=== PATIENT | female | born 1995 | race American Indian/Alaskan Native ===

== ENCOUNTER 2017-01-22 12:43 | Emergency (ER) | payer SELFPAY ==
[2017-01-22 13:44] LABS: Hemoglobin 12.1 gm/dl (10.1-14.3); Mean Corpuscular HGB Conc 34 % (30-34); Mean Corpuscular Hemoglobin 31 pg (28-32); Mean Corpuscular Volume 91 fl (79-97); Platelet Count 245 K/mm3 (140-440); Red Blood Count 3.96 M/mm3 (3.65-5.03); Red Cell Distribution Width 14.1 % (13.2-15.2); White Blood Count 7.4 K/mm3 (4.5-11.0)
[2017-01-22 13:52] LABS: Anion Gap 17 mmol/L; BUN/Creatinine Ratio 12.85; Blood Urea Nitrogen 9 mg/dL (7-17); Calcium 8.7 mg/dL (8.4-10.2); Carbon Dioxide 24 mmol/L (22-30); Glucose 89 mg/dL (65-100); Potassium 4.3 mmol/L (3.6-5.0); Sodium 139 mmol/L (137-145)
[2017-01-22] MEDS ORDERED: ROCEPHIN IM ONE (13:57)
[2017-01-22] MEDS ORDERED: XYLOCAINE 1% MPF 5 mL INFILTRATI ONE (13:57)
[2017-01-22] MEDS ORDERED: ZITHROMAX PO ONE (13:57)
[2017-01-22] MEDS ORDERED: NACL ONE (13:59)
[2017-01-22 14:02] VITALS: BP 98/68
[2017-01-22 14:56] LABS: Bilirubin,Urine NEG (Negative); Blood,Urine SM (Negative); Ketones,Urine NEG (Negative); Leukocyte Esterase,Urine TR (Negative); Mucus,Urine 2+ /HPF; Nitrite,Urine NEG (Negative); Protein,Urine <15 mg/dL mg/dL (Negative); Urobilinogen,Urine < 2.0 mg/dL (<2.0)
--- NOTE | 2017-01-22 15:34 | Ultrasound Report ---
FINAL REPORT EXAM: US PELVIC COMPLETE HISTORY: pelvic pain . LMP 12/27/2016 TECHNIQUE: Ultrasound of the pelvis using transabdominal and transvaginal imaging PRIORS: None. FINDINGS: Uterus: Uterus is elongated in size and normal and homogeneous in echogenicity without focal fibroid formation. The uterus measures 8.7 x 4.2 x 6.0 cm in size. Endometrial stripe: Normal and uniform in thickness measuring 9.9 mm. Ovaries: Both ovaries appear normal in size and echogenicity with normal blood flow bilaterally. The right ovary measures 3.8 x 2.5 x 3.0 cm and the left ovary measures 3.3 x 1.7 x 2.1 cm in size. There is a complex focus in the right ovary measuring 2.2 x 1.4 x 1.6 cm. This is likely hemorrhagic . Other: There is no evidence for solid adnexal mass or free fluid in the cul-de-sac seen. IMPRESSION: Complex focus in the right ovary, probably a hemorrhagic cyst. Otherwise, negative exam.
--- NOTE | 2017-01-22 15:38 | Ultrasound Report ---
FINAL REPORT EXAM: US TRANSVAGINAL HISTORY: pelvic pain LMP 12/27/2016 TECHNIQUE: Ultrasound of the pelvis using transabdominal and transvaginal imaging PRIORS: None. FINDINGS: Uterus: Uterus is elongated in size and normal and homogeneous in echogenicity without focal fibroid formation. The uterus measures 8.7 x 4.2 x 6.0 cm in size. Endometrial stripe: Normal and uniform in thickness measuring 9.9 mm. Ovaries: Both ovaries appear normal in size and echogenicity with normal blood flow bilaterally. The right ovary measures 3.8 x 2.5 x 3.0 cm and the left ovary measures 3.3 x 1.7 x 2.1 cm in size. There is a complex focus in the right ovary measuring 2.2 x 1.4 x 1.6 cm. This is likely hemorrhagic . Other: There is no evidence for solid adnexal mass or free fluid in the cul-de-sac seen. IMPRESSION: Complex focus in the right ovary, probably a hemorrhagic cyst. Otherwise, negative exam.
[2017-01-22 17:43] LABS: Blastocytes % (Manual) 0 %
[2017-01-22 17:44] LABS: Diff Status Complete; Platelet Estimate Consistent w Auto; RBC Morphology Normal
--- NOTE | 2017-01-22 22:47 | Emergency Department Report ---
Entered by BUFFY CLEMENTE, acting as scribe for DILEEP BAH NP. ED Female HPI - General Chief complaint: Urogenital-Female Stated complaint: ABD PAIN,ABNORMAL DISCHARGE Time Seen by Provider: 01/22/17 13:13 Source: patient Mode of arrival: Ambulatory Limitations: No Limitations - History of Present Illness Initial comments: 21 y/o female that is non-toxic, non ill appearing, in no acute distress presents with no significant PMHx presents to the ED c/o intermittent pelvic pain that began 1 month ago. Rates pelvic pain currently a 6/10 in severity. Associated symptoms include polyuria, urgency, frequency, vaginal discharge with a foul odor, and low back pain, but she denies dysuria, hematuria, abdominal pain, nausea, and vomiting. Patient states that she suspects getting an STD from her current sexual partner. LMP 12/27/2016. NKDA. ARELLANO Complaint: vaginal discharge, pelvic pain Onset/Timin -: month(s) Radiation: non-radiating Severity: moderate Severity scale (0 -10): 6 Quality: aching Consistency: constant Improves with: none Worsens with: none Associated Symptoms: denies other symptoms, vaginal discharge (with a foul odor) , other (polyuria, urgency, frequency). denies: vaginal bleeding, abdominal pain, nausea/vomiting, fever/chills, headaches, loss of appetite, dysuria, hematuria, rash, shortness of breath, syncope, weakness - Related Data Sexually active: Yes (1 sexual partner) Previous Rx's Medication Instructions Recorded Last Taken Type metroNIDAZOLE [Flagyl] 500 mg PO Q12HR #14 tab 08/13/16 Unknown Rx metroNIDAZOLE [Flagyl] 500 mg PO Q12HR 7 Days 01/22/17 Unknown Rx Allergies Allergy/AdvReac Type Severity Reaction Status Date / Time No Known Allergies Allergy Verified 01/22/17 14:06 ED Review of Systems Comment: All other systems reviewed and negative Constitutional: no symptoms reported. denies: chills, fever Respiratory: no symptoms reported. denies: cough, shortness of breath Cardiovascular: as per HPI. denies: chest pain Endocrine: no symptoms reported Gastrointestinal: as per HPI, other (pelvic pain). denies: abdominal pain, nausea, vomiting Genitourinary: urgency, frequency, discharge (with a foul odor). denies: dysuria, hematuria Musculoskeletal: as per HPI, back pain (low back pain) Skin: denies: rash ED Past Medical Hx - Past Medical History Previous Medical History?: Yes Additional medical history: UTI, Bacterial vaginosis - Surgical History Past Surgical History?: No - Social History Smoking Status: Current Every Day Smoker Substance Use Type: Alcohol, Marijuana - Medications Home Medications: Home Medications Medication Instructions Recorded Confirmed Last Taken Type metroNIDAZOLE [Flagyl] 500 mg PO Q12HR #14 tab 08/13/16 Unknown Rx metroNIDAZOLE [Flagyl] 500 mg PO Q12HR 7 Days 01/22/17 Unknown Rx ED Physical Exam - General Limitations: No Limitations General appearance: alert, in no apparent distress - Head Head exam: Present: atraumatic, normocephalic - Eye Eye exam: Present: normal appearance, EOMI Pupils: Present: normal accommodation - ENT ENT exam: Present: normal exam, mucous membranes moist, TM's normal bilaterally , normal external ear exam - Neck Neck exam: Present: normal inspection, full ROM - Respiratory Respiratory exam: Present: normal lung sounds bilaterally. Absent: respiratory distress, wheezes, rales, rhonchi - Cardiovascular Cardiovascular Exam: Present: regular rate, normal rhythm. Absent: bradycardia , tachycardia, irregular rhythm, systolic murmur, diastolic murmur, rubs, gallop - GI/Abdominal GI/Abdominal exam: Present: soft, normal bowel sounds. Absent: distended, tenderness, guarding, rebound, rigid - External exam: Present: normal external exam (female av specialist present during the exam), other (thick white milky discharge). Absent: erythema, swelling ( Bartholin cyst), lesions, lacerations, ecchymosis, bleeding Speculum exam: Present: normal speculum exam (female av specialist present during the exam), erythema (vaginal wall area is erythematous), vaginal discharge ( white cottage cheese discharge with a foul odor), cervical discharge (white cottage cheese in appearance). Absent: foreign body, tissue, laceration Bi-manual exam: Present: normal bi-manual exam (female av specialist present during the exam). Absent: cervical motion tendernes, adnexal tenderness, adnexal mass , uterine enlargement, uterine tenderness - Expanded Exam Expanded Female exam: Absent: vaginal laceration, tissue present in vagina, herpetic lesions, vulvar erythema, vulvar tenderness, foreign body External exam: Absent: normal (thick white milky vaginal discharge) Amniotic fluid: Present: none Speculum exam: Present: cervical OS closed, vaginal discharge (white cottage cheese like discharge). Absent: vaginal bleeding - Extremities Exam Extremities exam: Present: normal inspection, full ROM - Back Exam Back exam: Present: normal inspection, full ROM. Absent: CVA tenderness (R), CVA tenderness (L) - Neurological Exam Neurological exam: Present: alert, oriented X3, CN II-XII intact, normal gait - Psychiatric Psychiatric exam: Present: normal affect, normal mood - Skin Skin exam: Present: warm, dry, intact. Absent: rash ED Course Vital Signs 01/22/17 01/22/17 12:53 14:00 Temperature 98.5 F Pulse Rate 113 H 86 Respiratory 20 18 Rate Blood Pressure 139/85 Blood Pressure 98/68 [Left] O2 Sat by Pulse 100 100 Oximetry ED Medical Decision Making - Lab Data Result diagrams: 01/22/17 13:25 01/22/17 13:25 - Medical Decision Making Ed course: This is a 21-year-old female presents with cervicitis and bacterial vaginosis 1- upon assessment of the patient, patient received ultrasound of the pelvic/ transvaginal due to history of pelvic pain for the past month. Patient denies any pelvic pain at this current time. Ultrasound results: Dr. Forman dictated. Impression; complex focus in the right ovary roughly a hemorrhagic cyst otherwise negative exam. Patient was notified of the ultrasound results and was instructed to follow-up with her velvet weaver. 2- patient received Rocephin 2050 mg IM and azithromycin 1 g in the ED due to concerns of gonorrhea Chlamydia exposure. 3- patient was instructed to follow-up with medical records for gonorrhea and chlamydia results. 4- wet prep was sent with normal results. No trichomonas or yeast infection. 5- patient received Flagyl 500 mg at the time of discharge. 6- patient agrees to discharge treatment plan and plan of care. At the time of discharge the patient does not seem toxic or ill in appearance. No signs of distress noted. ED Disposition Clinical Impression: Bacterial vaginosis, Cervicitis Disposition: DISCHARGED TO HOME OR SELFCARE Is pt being admited?: No Does the pt Need Aspirin: No Condition: Stable Instructions: Bacterial Vaginosis (ED), Cervicitis (ED) Additional Instructions: Follow-up with your velvet weaver/primary care doctor in 3-5 days Take full course of antibiotics as prescribed. Follow-up with medical records and so [facility] for year results of gonorrhea chlamydia. Prescriptions: metroNIDAZOLE [Flagyl] 500 mg PO Q12HR 7 Days Referrals: [facility] [Outside] - 3-5 Days [facility] [Outside] - 3-5 Days PRIMARY CARE, [Primary Care Provider] - 3-5 Days KEYUR GAGE MD [Staff Physician] - 3-5 Days Forms: STI Treatment and Prevention, Work/School Release Form(ED) This documentation as recorded by the BRYN garrido JASMINE,accurately reflects the service I personally performed and the decisions made by me,DILEEP BAH, [employer] DELIVERY CONSULTANT.
== END 2017-01-22 16:00 | disposition home or self-care (01) ==
LOC: ED 12:43
DX: N76.0 Acute vaginitis (principal); N72 Inflammatory disease of cervix uteri; F17.200 Nicotine dependence, unspecified, uncomplicated; F12.10 Cannabis abuse, uncomplicated
CPT/HCPCS: 36415; 76830; 76856; 80048; 81001; 81025; 84703; 85007; 85025; 87210; 87591; 96372; 99284; J0696

== ENCOUNTER 2017-02-02 10:18 | Emergency (ER) | payer SELFPAY ==
[2017-02-02 12:01] LABS: Bacteria,Urine 1+ /HPF (Negative); Bilirubin,Urine NEG (Negative); Blood,Urine NEG (Negative); Ketones,Urine NEG (Negative); Leukocyte Esterase,Urine SM (Negative); Mucus,Urine 1+ /HPF; Nitrite,Urine NEG (Negative); Protein,Urine <15 mg/dL mg/dL (Negative); Urobilinogen,Urine < 2.0 mg/dL (<2.0)
--- NOTE | 2017-02-02 13:45 | Emergency Department Report ---
ED Female HPI - General Chief complaint: Urogenital-Female Stated complaint: F/U MEDS DID NOT WORK/VAG DISCHARGE Time Seen by Provider: 02/02/17 12:45 Source: patient Mode of arrival: Ambulatory Limitations: No Limitations - History of Present Illness Initial comments: 21-year-old female past medical history UTIs, BV presents with complaint of persistent whitish vaginal discharge despite being treated for BV over the last 2 weeks. Patient states she was in ED twice for testing of Chlamydia gonorrhea and bacterial vaginosis. Patient states she was treated empirically for chlamydia and gonorrhea as well as BV. Patient denies any current pelvic pain only complaining of vaginal discharge. Patient denies any dysuria. MD Complaint: vaginal discharge Onset/Timin -: week(s) Severity: mild Worsens with: none Are you Now?: No Last Menstrual Period: 01/26/17 EDC: 11/02/17 Associated Symptoms: vaginal discharge (whitish vaginal discharge, slightly viscous) - Related Data Sexually active: Yes Previous Rx's Medication Instructions Recorded Last Taken Type metroNIDAZOLE [Flagyl] 500 mg PO Q12HR #14 tab 08/13/16 Unknown Rx metroNIDAZOLE [Flagyl] 500 mg PO Q12HR 7 Days 01/22/17 Unknown Rx Fluconazole [Diflucan TAB] 150 mg PO ONCE #1 tablet 02/02/17 Unknown Rx Lactobac Cmb #3/Fos/Pantethine 1 each PO QDAY #1 bottle 02/02/17 Unknown Rx [Probiotic & Acidophilus Cap] metroNIDAZOLE [Flagyl TAB] 500 mg PO Q12HR #14 tab 02/02/17 Unknown Rx Allergies Allergy/AdvReac Type Severity Reaction Status Date / Time No Known Allergies Allergy Verified 02/02/17 10:35 ED Review of Systems ROS: Stated complaint: F/U MEDS DID NOT WORK/VAG DISCHARGE Other details as noted in HPI Constitutional: denies: chills, fever Eyes: denies: eye pain, eye discharge, vision change ENT: denies: ear pain, throat pain Respiratory: denies: cough, shortness of breath, wheezing Cardiovascular: denies: chest pain, palpitations Endocrine: no symptoms reported Gastrointestinal: denies: abdominal pain, nausea, diarrhea Genitourinary: denies: urgency, dysuria, discharge Musculoskeletal: denies: back pain, joint swelling, arthralgia Skin: denies: rash, lesions Neurological: denies: headache, weakness, paresthesias Psychiatric: denies: anxiety, depression Hematological/Lymphatic: denies: easy bleeding, easy bruising ED Past Medical Hx - Past Medical History Additional medical history: UTI, Bacterial vaginosis - Surgical History Past Surgical History?: No - Social History Smoking Status: Current Some Day Smoker Substance Use Type: Alcohol, Marijuana - Medications Home Medications: Home Medications Medication Instructions Recorded Confirmed Last Taken Type metroNIDAZOLE [Flagyl] 500 mg PO Q12HR #14 tab 08/13/16 Unknown Rx metroNIDAZOLE [Flagyl] 500 mg PO Q12HR 7 Days 01/22/17 Unknown Rx Fluconazole [Diflucan TAB] 150 mg PO ONCE #1 tablet 02/02/17 Unknown Rx Lactobac Cmb #3/Fos/Pantethine 1 each PO QDAY #1 bottle 02/02/17 Unknown Rx [Probiotic & Acidophilus Cap] metroNIDAZOLE [Flagyl TAB] 500 mg PO Q12HR #14 tab 02/02/17 Unknown Rx ED Physical Exam - General Limitations: No Limitations General appearance: alert, in no apparent distress - Head Head exam: Present: atraumatic, normocephalic - Eye Eye exam: Present: normal appearance, PERRL, EOMI - ENT ENT exam: Present: mucous membranes moist - Neck Neck exam: Present: normal inspection - Respiratory Respiratory exam: Present: normal lung sounds bilaterally. Absent: respiratory distress - Cardiovascular Cardiovascular Exam: Present: regular rate, normal rhythm. Absent: systolic murmur, diastolic murmur, rubs, gallop - GI/Abdominal GI/Abdominal exam: Present: soft, normal bowel sounds - External exam: Present: normal external exam Speculum exam: Present: vaginal discharge (white slightly thick vaghinal discharge) Bi-manual exam: Present: normal bi-manual exam - Extremities Exam Extremities exam: Present: normal inspection - Back Exam Back exam: Present: normal inspection - Neurological Exam Neurological exam: Present: alert, oriented X3 - Psychiatric Psychiatric exam: Present: normal affect, normal mood - Skin Skin exam: Present: warm, dry, intact, normal color. Absent: rash ED Course Vital Signs 02/02/17 10:37 Temperature 98.1 F Pulse Rate 72 Respiratory 17 Rate Blood Pressure 117/70 O2 Sat by Pulse 100 Oximetry ED Medical Decision Making - Medical Decision Making A/P: Bacterial vaginosis, vaginal candidiasis 1- As per CDC and UTD recommendation on BV treatment as pt has symptoms with + wet prep will repeat course fo treatment with metronidazole. I presented pt with option of vaginal gels or clindamycin, preferred to try repeat metronidazole. This is acceptable form of repeat treatment https://www.cdc.gov/ std/py2757/bv.htm; https://www.[employer]/contents/bacterial-vaginosis?source= search_result&search=bacterial%20vaginosis&selectedTitle=1~97#H10 2- I advised patient to follow up with [facility] 3- fluconazole 150mg empiric tx for presence of yeast 4- I advised pt to use probiotics as this may mitigate recurrent infections Critical care attestation.: If time is entered above; I have spent that time in minutes in the direct care of this critically ill patient, excluding procedure time. ED Disposition Clinical Impression: Bacterial vaginosis, Vaginal candidiasis Disposition: DISCHARGED TO HOME OR SELFCARE Is pt being admited?: No Does the pt Need Aspirin: No Condition: Stable Instructions: Bacterial Vaginosis (ED), Vulvovaginal Candidiasis (ED) Prescriptions: Fluconazole [Diflucan TAB] 150 mg PO ONCE #1 tablet Lactobac Cmb #3/Fos/Pantethine [Probiotic & Acidophilus Cap] 1 each PO QDAY #1 bottle metroNIDAZOLE [Flagyl TAB] 500 mg PO Q12HR #14 tab Referrals: SANDRA NARANJO MD [Staff Physician] - 3-5 Days [facility] [Provider Group] - 3-5 Days Forms: STI Treatment and Prevention Time of Disposition: 14:31
[2017-02-02 14:52] VITALS: BP 136/78
== END 2017-02-02 14:51 | disposition home or self-care (01) ==
LOC: ED 10:18
DX: N76.0 Acute vaginitis (principal); B37.3 Candidiasis of vulva and vagina; F17.200 Nicotine dependence, unspecified, uncomplicated; F12.10 Cannabis abuse, uncomplicated
CPT/HCPCS: 81001; 81025; 87210; 99283

== ENCOUNTER 2017-05-08 10:45 | Emergency (ER) | payer SELFPAY ==
[2017-05-08 11:08] VITALS: BP 122/85
--- NOTE | 2017-05-08 11:10 | Emergency Department Report ---
Chief Complaint: Urogenital-Female Stated Complaint: RETURN FOR UTI ISSUE Time Seen by Provider: 05/08/17 11:08 - HPI History of Present Illness: pt c/o recurrent BV and frequent UTIs - ROS Review of Systems: + urinary frequency + vaginal discharge - Exam Vital Signs: Vital Signs 05/08/17 11:02 Temperature 98.3 F Pulse Rate 68 Respiratory 18 Rate Blood Pressure 122/85 O2 Sat by Pulse 97 Oximetry Physical Exam: pt looks well, non toxic. gcs 15 MSE screening note: Focused history and physical exam performed. Due to findings the following was ordered: labs ED Disposition for MSE Condition: Stable
[2017-05-08 11:46] LABS: Anion Gap 17 mmol/L; BUN/Creatinine Ratio 13.33; Blood Urea Nitrogen 8 mg/dL (7-17); Calcium 8.3 mg/dL (8.4-10.2); Carbon Dioxide 24 mmol/L (22-30); Chloride 102.5 mmol/L (98-107); Glucose 93 mg/dL (65-100); Sodium 139 mmol/L (137-145)
[2017-05-08 12:12] LABS: Bacteria,Urine 1+ /HPF (Negative); Bilirubin,Urine NEG (Negative); Blood,Urine NEG (Negative); Ketones,Urine NEG (Negative); Leukocyte Esterase,Urine NEG (Negative); Mucus,Urine 1+ /HPF; Nitrite,Urine NEG (Negative); Protein,Urine <15 mg/dL mg/dL (Negative); Urobilinogen,Urine < 2.0 mg/dL (<2.0)
--- NOTE | 2017-05-08 12:12 | Emergency Department Report ---
ED Female HPI - General Chief complaint: Urogenital-Female Stated complaint: RETURN FOR UTI ISSUE Time Seen by Provider: 05/08/17 11:08 Source: patient Mode of arrival: Ambulatory Limitations: No Limitations - History of Present Illness Initial comments: Patient reports urinary tract symptoms with vaginal discharge that started one week ago. LMP 04/30/17 MD Complaint: vaginal discharge, dysuria Onset/Timin -: week(s) Location: suprapubic Radiation: non-radiating Severity: mild Severity scale (0 -10): 0 Quality: other (none) Consistency: constant Improves with: none Worsens with: urination Are you Now?: No Last Menstrual Period: 04/30/17 EDC: 02/04/18 Associated Symptoms: vaginal discharge, dysuria. denies: vaginal bleeding, abdominal pain, nausea/vomiting, fever/chills, headaches, loss of appetite, hematuria, rash, seizure, shortness of breath, syncope, weakness - Related Data Sexually active: Yes Previous Rx's Medication Instructions Recorded Last Taken Type metroNIDAZOLE [Flagyl] 500 mg PO Q12HR 7 Days 01/22/17 Unknown Rx Fluconazole [Diflucan TAB] 150 mg PO ONCE #1 tablet 02/02/17 Unknown Rx Lactobac Cmb #3/Fos/Pantethine 1 each PO QDAY #1 bottle 02/02/17 Unknown Rx [Probiotic & Acidophilus Cap] metroNIDAZOLE [Flagyl TAB] 500 mg PO Q12HR #14 tab 02/02/17 Unknown Rx metroNIDAZOLE [Flagyl TAB] 500 mg PO Q12HR #14 tab 05/08/17 Unknown Rx Allergies Allergy/AdvReac Type Severity Reaction Status Date / Time No Known Allergies Allergy Verified 02/02/17 10:35 ED Review of Systems ROS: Stated complaint: RETURN FOR UTI ISSUE Other details as noted in HPI Constitutional: denies: chills, diaphoresis, fever, malaise, weakness Respiratory: denies: cough, orthopnea, shortness of breath, SOB with exertion, SOB at rest, stridor, wheezing Cardiovascular: denies: chest pain, palpitations, dyspnea on exertion, orthopnea , edema, syncope, paroxysmal nocturnal dyspnea Gastrointestinal: denies: abdominal pain, nausea, vomiting, diarrhea, constipation, hematemesis, melena, hematochezia Genitourinary: dysuria, discharge (vaginal). denies: urgency, frequency, hematuria, abnormal menses, dyspareunia Musculoskeletal: denies: back pain, joint swelling, arthralgia Skin: denies: rash, lesions Neurological: denies: headache, weakness, numbness, paresthesias, confusion Psychiatric: denies: anxiety, depression Hematological/Lymphatic: denies: easy bleeding, easy bruising, swollen glands ED Past Medical Hx - Past Medical History Previous Medical History?: Yes Additional medical history: UTI, Bacterial vaginosis - Surgical History Past Surgical History?: No - Social History Smoking Status: Current Every Day Smoker Substance Use Type: Alcohol, Marijuana - Medications Home Medications: Home Medications Medication Instructions Recorded Confirmed Last Taken Type metroNIDAZOLE [Flagyl] 500 mg PO Q12HR 7 Days 01/22/17 Unknown Rx Fluconazole [Diflucan TAB] 150 mg PO ONCE #1 tablet 02/02/17 Unknown Rx Lactobac Cmb #3/Fos/Pantethine 1 each PO QDAY #1 bottle 02/02/17 Unknown Rx [Probiotic & Acidophilus Cap] metroNIDAZOLE [Flagyl TAB] 500 mg PO Q12HR #14 tab 02/02/17 Unknown Rx metroNIDAZOLE [Flagyl TAB] 500 mg PO Q12HR #14 tab 05/08/17 Unknown Rx ED Physical Exam - General Limitations: No Limitations General appearance: alert, in no apparent distress - Head Head exam: Present: atraumatic, normocephalic, normal inspection - ENT ENT exam: Present: normal exam, mucous membranes moist - Neck Neck exam: Present: normal inspection, full ROM. Absent: tenderness, meningismus, lymphadenopathy, thyromegaly - Respiratory Respiratory exam: Present: normal lung sounds bilaterally. Absent: respiratory distress, wheezes, rales, rhonchi, stridor, chest wall tenderness, accessory muscle use, decreased breath sounds, prolonged expiratory - Cardiovascular Cardiovascular Exam: Present: regular rate, normal rhythm, normal heart sounds. Absent: systolic murmur, diastolic murmur, rubs, gallop - GI/Abdominal GI/Abdominal exam: Present: soft, normal bowel sounds. Absent: distended, tenderness, guarding, rebound, rigid - External exam: Present: normal external exam. Absent: erythema, swelling, lesions, lacerations, ecchymosis, bleeding Speculum exam: Present: vaginal discharge (creamy), cervical discharge (creamy) . Absent: erythema, vaginal bleeding, foreign body, tissue, laceration Bi-manual exam: Present: normal bi-manual exam. Absent: cervical motion tendernes, adnexal tenderness, adnexal mass, uterine enlargement, uterine tenderness - Extremities Exam Extremities exam: Present: normal inspection, full ROM, normal capillary refill. Absent: pedal edema, joint swelling - Back Exam Back exam: Present: normal inspection, full ROM. Absent: CVA tenderness (R), CVA tenderness (L) - Neurological Exam Neurological exam: Present: alert, oriented X3, CN II-XII intact, normal gait, reflexes normal. Absent: motor sensory deficit - Psychiatric Psychiatric exam: Present: normal affect, normal mood. Absent: depressed, agitated - Skin Skin exam: Present: warm, dry, intact, normal color. Absent: rash ED Course Vital Signs 05/08/17 11:02 Temperature 98.3 F Pulse Rate 68 Respiratory 18 Rate Blood Pressure 122/85 O2 Sat by Pulse 97 Oximetry - Reevaluation(s) Reevaluation #1: 05/08/17 12:44 pelvic examination with laboratory studies ordered ED Medical Decision Making - Lab Data Result diagrams: 05/08/17 11:19 Lab Results 05/08/17 05/08/17 Range/Units 11:19 11:53 Sodium 139 (137-145) mmol/L Potassium 4.0 (3.6-5.0) mmol/L Chloride 102.5 (98-107) mmol/L Carbon Dioxide 24 (22-30) mmol/L Anion Gap 17 mmol/L BUN 8 (7-17) mg/dL Creatinine 0.6 L (0.7-1.2) mg/dL Estimated GFR > 60 ml/min BUN/Creatinine Ratio 13.33 % Glucose 93 (65-100) mg/dL Calcium 8.3 L (8.4-10.2) mg/dL Urine Color Yellow (Yellow) Urine Turbidity Slightly-cloudy (Clear) Urine pH 6.0 (5.0-7.0) Ur Specific [place] 1.020 (1.003-1.030) Urine Protein <15 mg/dl (Negative) mg/dL Urine Glucose (UA) Neg (Negative) mg/dL Urine Ketones Neg (Negative) mg/dL Urine Blood Neg (Negative) Urine Nitrite Neg (Negative) Urine Bilirubin Neg (Negative) Urine Urobilinogen < 2.0 (<2.0) mg/dL Ur Leukocyte Esterase Neg (Negative) Urine WBC (Auto) 1.0 (0.0-6.0) /HPF Urine RBC (Auto) 4.0 (0.0-6.0) /HPF U Epithel Cells (Auto) 8.0 (0-13.0) /HPF Urine Bacteria (Auto) 1+ (Negative) /HPF Urine Mucus 1+ /HPF Urine HCG, Qual Negative (Negative) Vital Signs 05/08/17 11:02 Temperature 98.3 F Pulse Rate 68 Respiratory 18 Rate Blood Pressure 122/85 O2 Sat by Pulse 97 Oximetry Microbiology 05/08/17 12:30 Cervix Wet Prep - Final No Yeast Seen No Trichomoniasis 20% or > Clue Cells Seen - Medical Decision Making During the course of ED, pelvic examination and laboratory studies were ordered. Patient was sent home with a prescription for Flagyl, instructed to follow up with the selected referral given at discharge, she verbalized understanding - Differential Diagnosis Bacteral Vaginosis, UTI Critical care attestation.: If time is entered above; I have spent that time in minutes in the direct care of this critically ill patient, excluding procedure time. ED Disposition Clinical Impression: Bacterial vaginosis Disposition: DC-01 TO HOME OR SELFCARE Is pt being admited?: No Does the pt Need Aspirin: No Condition: Stable Instructions: Bacterial Vaginosis (ED) Additional Instructions: Take medication as directed. Take over the counter Probiotic as a supplement to assist with BV. Follow up with the selective referral given at discharge Prescriptions: metroNIDAZOLE [Flagyl TAB] 500 mg PO Q12HR #14 tab Referrals: PRIMARY CARE, [Primary Care Provider] - 3-5 Days KOJO MOHAMUD CNM [Advanced Practice Nurse] - 3-5 Days DEVON DAHL CNM [Advanced Practice Nurse] - 3-5 Days PAUL ERWIN MD [Staff Physician] - 3-5 Days Forms: STI Treatment and Prevention, Work/School Release Form(ED) Time of Disposition: 13:17
== END 2017-05-08 13:32 | disposition home or self-care (01) ==
LOC: ED 10:45
DX: N76.0 Acute vaginitis (principal); F17.200 Nicotine dependence, unspecified, uncomplicated; F12.10 Cannabis abuse, uncomplicated; Z87.440 Personal history of urinary (tract) infections
CPT/HCPCS: 36415; 80048; 81001; 81025; 87210; 87591

== ENCOUNTER 2017-07-31 13:28 | Emergency (ER) | payer SELFPAY ==
[2017-07-31 13:58] VITALS: BP 125/80
[2017-07-31 14:23] LABS: Bacteria,Urine 2+ /HPF (Negative); Bilirubin,Urine NEG (Negative); Blood,Urine MOD (Negative); Ketones,Urine 20 mg/dL (Negative); Leukocyte Esterase,Urine TR (Negative); Mucus,Urine 3+ /HPF; Nitrite,Urine NEG (Negative); Protein,Urine <15 mg/dL mg/dL (Negative)
== END 2017-07-31 16:25 | disposition left against medical advice (07) ==
LOC: ED 13:28
DX: Z53.21 Procedure and treatment not carried out due to patient leaving prior to being seen by health care provider (principal)
CPT/HCPCS: 81001